=== PATIENT | male | born 1990 | race Caucasian/White ===

== ENCOUNTER 2019-04-25 08:14 | Emergency (ER) | payer OTHER ==
[~2019-04-25] VITALS: Ht 172.7 cm; Wt 79.4 kg
[2019-04-25] MEDS ORDERED: SERT50 PO (09:16)
[2019-04-25] MEDS ORDERED: Atarax10 MG PO (09:16)
[2019-04-25] MEDS ORDERED: IBUP800 PO (09:17)
[2019-04-25] MEDS ORDERED: SUBOXONE 4 MG-1 EACH SL (09:17)
[2019-04-25] MEDS ORDERED: Zoloft25 MG PO (09:35)
== END 2019-04-25 09:54 | disposition home or self-care (01) ==
LOC: ER 08:14
DX: Z76.0 Encounter for issue of repeat prescription (principal); F17.210 Nicotine dependence, cigarettes, uncomplicated
CPT/HCPCS: 99281